=== PATIENT | female | born 1955 | race Caucasian/White ===

== ENCOUNTER 2019-07-31 06:04 | Outpatient (RCR) | payer MEDICARE, MEDICAID, SELFPAY | END 2019-08-26 00:01 | LOC: ONCMED 06:04 | PROVIDERS: Family Provider Family Medicine; Visit Provider Internal Medicine Hematology & Oncology | DX: Z45.2 Encounter for adjustment and management of vascular access device (principal) | CPT/HCPCS: 96523; J1642 ==

== ENCOUNTER 2019-09-01 06:16 | Outpatient (RCR) | payer MEDICARE, MEDICAID, SELFPAY | END 2019-09-26 23:59 | disposition home or self-care (01) | LOC: ONCMED 06:16 | PROVIDERS: Family Provider Family Medicine; Visit Provider Internal Medicine Hematology & Oncology | DX: Z45.2 Encounter for adjustment and management of vascular access device (principal) | CPT/HCPCS: 96523 ==

== ENCOUNTER 2019-10-01 05:40 | Outpatient (RCR) | payer MEDICARE, MEDICAID, SELFPAY ==
[2019-10-01 09:55] LABS: Basophils % 0.5 %; Eosinophils # 0.1 10^3/uL (0.0-0.8); Eosinophils % 1.7 %; Hematocrit 41.3 % (37.0-47.0); Hemoglobin 13.5 g/dL (11.5-15.3); Lymphocytes # 2.7 10^3/uL (0.8-4.8); Lymphocytes % 34.8 %; Mean Corpuscular HGB Conc 32.7 g/dL (30.0-36.0); Mean Corpuscular Hemoglobin 30.8 pg (28.0-34.0); Mean Corpuscular Volume 94.3 fL (81-99); Monocytes # 0.6 10^3/uL (0.2-0.9); Monocytes % 7.3 %; Neutrophils # 4.2 10^3/uL (1.8-7.7); Neutrophils % 55.6 %; Nucleated Red Blood Cells % 0 %; Platelet Count 192 10^3/cmm (130-400); Red Blood Count 4.38 10^6/uL (4.1-5.3); Red Cell Distribution Width 12.9 % (12.1-15.1); White Blood Count 7.6 10^3/uL (4.0-10.0)
[2019-10-01 10:08] LABS: Alanine Aminotransferase 13 U/L (0-33); Albumin Level 3.7 g/dL (3.5-5.2); Alkaline Phosphatase 97 IU/L (35-105); Anion Gap 15.8 (5-19); Aspartate Amino Transferase 14 U/L (0-32); Blood Urea Nitrogen 15 mg/dL (8-23); Calcium 9.6 mg/dL (8.5-10.5); Carbon Dioxide 23 mmol/L (22-29); Chloride 105 mmol/L (98-107); Globulin 3.3 g/dL (1.3-4.6); Glomerular Filtration Rate 37.7 mL/min (90-130); Glucose 84 mg/dL (65-115); Potassium 3.8 mmol/L (3.5-5.1); Sodium 140 mmol/L (136-145); Total Bilirubin 0.2 mg/dL (0.15-1.2)
== END 2019-10-25 23:59 | disposition home or self-care (01) ==
LOC: ONCMED 05:40
PROVIDERS: Family Provider Family Medicine; Visit Provider Internal Medicine Hematology & Oncology
DX: C34.11 Malignant neoplasm of upper lobe, right bronchus or lung (principal); J44.9 Chronic obstructive pulmonary disease, unspecified; F17.210 Nicotine dependence, cigarettes, uncomplicated; Z92.21 Personal history of antineoplastic chemotherapy; Z90.2 Acquired absence of lung [part of]
CPT/HCPCS: 36591; 80053; 85025; G0463

== ENCOUNTER 2019-10-30 06:19 | Outpatient (RCR) | payer MEDICARE, MEDICAID, SELFPAY | END 2019-11-25 23:59 | disposition home or self-care (01) | LOC: ONCMED 06:19 | PROVIDERS: Family Provider Family Medicine; Visit Provider Internal Medicine Hematology & Oncology | DX: Z45.2 Encounter for adjustment and management of vascular access device (principal) | CPT/HCPCS: 96523 ==

== ENCOUNTER 2019-11-28 11:05 | Outpatient (CLI) | payer MEDICARE, MEDICAID, SELFPAY | END 2019-11-28 11:06 | disposition home or self-care (01) | LOC: ONCMED 11:05 | PROVIDERS: Family Provider Family Medicine; Visit Provider Internal Medicine Hematology & Oncology | DX: Z45.2 Encounter for adjustment and management of vascular access device (principal) | CPT/HCPCS: 96523 ==

== ENCOUNTER 2020-01-12 06:45 | Outpatient (RCR) | payer MEDICARE, MEDICAID, SELFPAY ==
--- NOTE | 2019-12-30 10:17 | CT_ITS ---
WS: [id number] CT chest w con* [id number] REASON FOR EXAM: LUNG CANCER IV CONTRAST ADMINISTERED: Visi 95 mL. TOTAL EXAM DLP: 523.[address] scans at [facility] use at least one of these dose optimization techniques: automat ed exposure control; mA and/or kV adjustment per patient size (includes targeted exams where dose is matched to clinical indication); or iterative reconstruction. FINDINGS: Follow-up evaluation from previous carcinoma the lungs show the lung cottrell suggest a right upper lung lobectomy. Pain recurrent lesion is not identified. The left lung is normal. There is mild scarring seen in the midportion of the right lung. The mediastinum was normal no masses in the hilum are seen. The great vessels are normal. The liver shows multiple hypodense lesions most likely cysts. The thoracic spine and upper lumbar spine showed no destructive changes. Both adrenal glands were normal. CT/CT chest w con* [id number] IMPRESSION: No recurrent neoplasm right lung with resection of the right upper lung Multiple cystic changes in the liver similar to previous exam . Resection of the right upper lung. No interval change since previous exam May 05, 2019
[2019-12-30 10:50] LABS: Blood Urea Nitrogen 12 mg/dL (8-23); Glomerular Filtration Rate 45.1 mL/min (90-130)
[2019-12-30] MEDS: iodixanol 320 mg/mL 100mL Btl IV (11:37)
[2020-01-12 08:54] LABS: Basophils % 0.4 %; Eosinophils # 0.1 10^3/uL (0.0-0.8); Eosinophils % 1.7 %; Hematocrit 40.8 % (37.0-47.0); Hemoglobin 13.1 g/dL (11.5-15.3); Lymphocytes # 1.9 10^3/uL (0.8-4.8); Lymphocytes % 25.7 %; Mean Corpuscular HGB Conc 32.1 g/dL (30.0-36.0); Mean Corpuscular Hemoglobin 31.2 pg (28.0-34.0); Mean Corpuscular Volume 97.1 fL (81-99); Mean Platelet Volume 9.4 fL (7.4-10.4); Monocytes # 0.7 10^3/uL (0.2-0.9); Monocytes % 9.5 %; Neutrophils # 4.5 10^3/uL (1.8-7.7); Neutrophils % 62.4 %; Nucleated Red Blood Cells % 0 %; Platelet Count 257 10^3/cmm (130-400); Red Cell Distribution Width 14.3 % (12.1-15.1); White Blood Count 7.2 10^3/uL (4.0-10.0)
[2020-01-12 09:10] LABS: Alanine Aminotransferase 14 U/L (0-33); Alkaline Phosphatase 93 IU/L (35-105); Aspartate Amino Transferase 13 U/L (0-32); Blood Urea Nitrogen 13 mg/dL (8-23); Calcium 9.7 mg/dL (8.5-10.5); Carbon Dioxide 24 mmol/L (22-29); Chloride 107 mmol/L (98-107); Glomerular Filtration Rate 49.8 mL/min (90-130); Glucose 102 mg/dL (65-115); Osmolality Calculated 290 mOsm/kg (285-295); Sodium 142 mmol/L (136-145); Total Bilirubin 0.3 mg/dL (0.15-1.2)
--- NOTE | 2020-01-12 17:52 | ONC FU_ITS ---
Dr. Jaime follow up note Patient: Ann Childers Unit #: [id number]: 1955 Dicatated By: Chad Jaime M.D.Date of Visit:January 12, 2020 Onc Med Follow-up/Prog Note History of Present Illness: Mrs. Childers is a 64-year-old female who, on 09/30/2018, presented to [facility] with progressive dyspnea following flu vaccination. She underwent CTA chest to rule out pulmonary embolism and there was incidental finding of a spiculated mass measuring 4.4 cm involving right upper lobe. There was some extension to the pleural margin. She was referred to Dr. Ferrell and had CT PET scan done on 11/02/2018. The PET/CT reported increase uptake in right upper lobe mass measuring 4 cm. She underwent right upper and middle lobectomy on 12/02/2018. The final pathology report showed 4.5 x 4.4 cm, adenocarcinoma, low-grade tumor 0 out of 3 right hilar lymph node showed metastatic disease, margins were clear but lymphatic invasion was seen. She did have CT of the Head on 01/24/2019 which did not report any metastatic disease. Long-standing history of smoking, still active. CT scan of head was done on 01/24/2019 showed no evidence of metastatic disease. Started on adjuvant chemotherapy with cisplatin/Alimta ???4 on 02/25/2019 Received 3 cycles of chemotherapy with cisplatin/Alimta but with fourth/final cycle carboplatin was substituted for cisplatin with Alimta due to progressive mild renal insufficiency.Completed her adjuvant chemotherapy on 05/27/2019 Follow-up CT scan done on 05/05/2019 showed right upper lobectomy with minimal residual peripheral scarring. No evidence of recurrent tumor or metastatic disease Follow-up CT scan of chest done on 12/30/2019 showed no recurrence of disease status post right upper lobe lobectomy, multiple cystic changes in the liver similar to prior exam. Came for follow-up, denies any specific complaints, no fever or chills, no nausea or vomiting, no diarrhea constipation, no hemoptysis or hematemesis, no headaches, no weight loss, appetite is good. Medications: Acetaminophen 2 Tablet (of 500 mg) Oral b.i.d. PRN, Albuterol Sulfate 1 puff(s) (of 108 (90 base) mcg/act) Aerosol Powder, Breath Activated Inhalation q 4 hours PRN, Breo Ellipta 1 puff(s) (of 100-25 mcg/inh) Aerosol Powder, Breath Activated Inhalation daily Allergies: HYDROcodone-Acetaminophen and Sulfa Antibiotics. Review of Systems: Constitutional - Appetite is fair and weight is stable. No fever, chills, or night sweats. Positive for hot flashes. Energy level is fair, ENMT - No sinus congestion/drainage. No sore throat or difficulty swallowing, Hematologic/Lymphatic - Positive for easy bruising, Respiratory - Positive for shortness of breath and cough. No pleuritic pain or hemoptysis, Cardiovascular - No angina pain. No palpitations, Gastrointestinal - No nausea, no vomiting. No heartburn or acid reflux. No constipation, Positive for occasional diarrhea. No blood in the stool or black stools, Genitourinary (F) - No dysuria or hematuria. No urinary frequency. No urgency or incontinence, Musculoskeletal - Positive for joint pain, Neurologic - No headache, no dizziness. No numbness/paresthesias or other focal neurologic symptoms, Psychiatric - Positive for anxiety and insomnia. Vital Signs: Performed on January 12, 2020 09:27 Height - 64.50 in Weight - 172.2 lbs (LOW) BSA - 1.85 sq.m BMI - 29.10 Temperature - 97.3 F (LOW) Pulse - 86 /min Respiration - 16 /min BP - 128/76 mm(hg) O2 Sat - 99 % Pain - 2 Performance Status: 0 - Fully active, able to carry on all predisease activities without restrictions. (ECOG) Physical Examination: ENMT - no mouth sores, Respiratory - Lungs are clear, Cardiovascular - Regular rate and rhythm of heart, Abdomen - bowel sounds present, nontender, Extremities - no edema or rash. Lab/Imaging: Test performed on December 30, 2019 10:32 BUN 12 mg/dL Test performed on Oct 01, 2019 09:41 Sodium 140 mmol/L Potassium 3.8 mmol/L Chloride 105 mmol/L CO2 23 mmol/L Anion Gap 15.8 Creatinine 1.4 mg/dL Cr Clearance (Est) 51.0100 mL/min eGFR 37.7 mL/min Glucose 84 mg/dL Calcium 9.6 mg/dL Protein, Total 7.0 g/dL Albumin 3.7 g/dL Globulin 3.3 g/dL Bilirubin, Total 0.2 mg/dL ALT (SGPT) 13 U/L AST (SGOT) 14 U/L Alkaline Phosphatase 97 IU/L WBC 7.6 10 3/uL RBC 4.38 10 6/uL HGB 13.5 g/dL HCT 41.3 % MCV 94.3 fL MCH 30.8 pg MCHC 32.7 g/dL RDW 12.9 % Platelet Count 192 10 3/cmm MPV 10.0 fL Neutrophils 4.2 10 3/uL Lymphocytes 2.7 10 3/uL Monocytes 0.6 10 3/uL Eosinophils 0.1 10 3/uL Basophils 0.0 10 3/uL Neutrophil % 55.6 % Lymphocyte % 34.8 % Monocyte % 7.3 % Eosinophil % 1.7 % Basophils % 0.5 % Impression: Adenocarcinoma of right upper lobe status post right upper and middle lobectomy done on 12/02/2018 final pathology report showed low-grade well to moderately differentiated infiltrating adenocarcinoma, tumor size 4.5 x 4.4 centimeter, pleural surface free of tumor, small lymphovascular space invasion seen, no venous invasion seen, margins were clear, T2b 0 out of 3 right hilar lymph node showed metastatic disease. N0 stage IIa with unfavorable features, like tumor more than 4 cm and with lymphovascular space invasion CT scan of head done on 01/24/2019 showed no evidence of metastatic disease .COPD, Chronic smoker, still active Ms. Childers began treatment with cisplatin Alimta on 02/25/2019. Completed her adjuvant chemotherapy on 05/20/2019 e.g. 3 cycles with cisplatin/Alimta and 1 cycle with carboplatin/Alimta cisplatin was changed to carboplatin due to renal insufficiency Plan: Discussed with patient regarding her labs white blood count 7.2 hemoglobin 13.1 crit 40.8 platelets 257,000 CMP within normal limits and CT scan of chest Clinically, patient has no signs symptom suggestive of recurrence of disease, her follow-up CT scan of chest and lab workup showed no evidence of recurrence of disease. Overall, patient is doing well, will continue to monitor and she will return to clinic in 6 month with CBC CMP and CT scan of chest and upper abdomen. Signed By: Chad Jaime M.D. <<Signature on File>>
== END 2020-01-25 23:59 | disposition home or self-care (01) ==
LOC: ONCMED 06:45
PROVIDERS: PCP Family Medicine; Visit Provider Internal Medicine Hematology & Oncology
DX: Z08 Encounter for follow-up examination after completed treatment for malignant neoplasm (principal); Z85.118 Personal history of other malignant neoplasm of bronchus and lung; F17.200 Nicotine dependence, unspecified, uncomplicated; J44.9 Chronic obstructive pulmonary disease, unspecified; Z92.21 Personal history of antineoplastic chemotherapy; Z90.2 Acquired absence of lung [part of]
CPT/HCPCS: 36415; 36591; 71260; 80053; 82565; 84520; 85025; G0463

== ENCOUNTER 2020-01-30 07:14 | Outpatient (RCR) | payer MEDICARE, MEDICAID, SELFPAY | END 2020-02-24 23:59 | disposition home or self-care (01) | LOC: ONCMED 07:14 | PROVIDERS: PCP Family Medicine; Visit Provider Internal Medicine Hematology & Oncology | DX: Z45.2 Encounter for adjustment and management of vascular access device (principal); C34.11 Malignant neoplasm of upper lobe, right bronchus or lung; D70.1 Agranulocytosis secondary to cancer chemotherapy; T45.1X5A Adverse effect of antineoplastic and immunosuppressive drugs, initial encounter | CPT/HCPCS: 96523 ==

== ENCOUNTER 2020-03-01 07:39 | Outpatient (RCR) | payer MEDICARE, MEDICAID, SELFPAY | END 2020-03-26 23:59 | disposition home or self-care (01) | LOC: ONCMED 07:39 | PROVIDERS: PCP Family Medicine; Visit Provider Internal Medicine Hematology & Oncology | DX: Z45.2 Encounter for adjustment and management of vascular access device (principal); C34.11 Malignant neoplasm of upper lobe, right bronchus or lung; D70.1 Agranulocytosis secondary to cancer chemotherapy; T45.1X5A Adverse effect of antineoplastic and immunosuppressive drugs, initial encounter | CPT/HCPCS: 96523 ==

== ENCOUNTER 2020-03-31 06:09 | Outpatient (RCR) | payer MEDICARE, MEDICAID, SELFPAY | END 2020-04-26 23:59 | disposition home or self-care (01) | LOC: ONCMED 06:09 | PROVIDERS: PCP Family Medicine; Visit Provider Internal Medicine Hematology & Oncology | DX: Z45.2 Encounter for adjustment and management of vascular access device (principal) | CPT/HCPCS: 96523 ==

== ENCOUNTER 2020-05-06 06:49 | Outpatient (RCR) | payer MEDICARE, MEDICAID, SELFPAY | END 2020-05-26 23:59 | disposition home or self-care (01) | LOC: ONCMED 06:49 | PROVIDERS: PCP Family Medicine; Visit Provider Internal Medicine Hematology & Oncology | DX: Z45.2 Encounter for adjustment and management of vascular access device (principal) | CPT/HCPCS: 96523 ==

== ENCOUNTER 2020-06-01 06:29 | Outpatient (CLI) | payer MEDICARE, MEDICAID, SELFPAY | END 2020-06-01 06:30 | disposition home or self-care (01) | LOC: ONCMED 06:32 | PROVIDERS: PCP Family Medicine; Visit Provider Internal Medicine Hematology & Oncology | DX: Z45.2 Encounter for adjustment and management of vascular access device (principal) | CPT/HCPCS: 96523 ==

== ENCOUNTER 2020-07-09 10:08 | Outpatient (CLI) | payer MEDICARE, MEDICAID, SELFPAY ==
--- NOTE | 2020-07-09 10:27 | CT_ITS ---
WS: [id number] CT scan of the chest With IV contrast, CT scan of the abdomen with IV contrast and oral contrast. Ad ditional two-dimensional coronal and sagittal reconstruction was performed. 07/09/2020 Clinical Data: LUNG CANCER, MALIGNANT NEOPLASM OF UPPER Lobe, right BRONCHUS Comparison: CT chest, 12/30/2019. DLP: 1711.[address] scans at [facility] use at least one of these dose optimization techniques: automat ed exposure control; mA and/or kV adjustment per patient size (includes targeted exams where dose is matched to clinical indication); or iterative reconstruction. Findings: Chest: The right upper lobectomy is seen. No nodules, masses or effusions are seen. There is a pleural-based scar which is not changed. The heart size is normal with no pericardial effusion. No pneumonia or pneumothorax is seen. The trac hea bifurcates normally into the bronchi. The pulmonary arterial system and thoracic aorta demonstrate no abnormalities or dilatations. There is no axillary or significant mediastinal adenopathy. The bony thorax shows no metastatic lesio ns. Abdomen/pelvis: There are clips in the gallbladder fossa from cholecystectomy. The liver shows no definite metastatic lesions but there are multiple low density lesions probably cysts unchanged. The spleen, adrenal glands and pancreas are normal. The kidneys show equal bilateral contrast excretion with no cyst or masses. No renal masses, hydronep hrosis or renal calculi are seen. The abdominal aorta is normal in size with calcification in the wall.. No appendicitis is seen. Oral contrast is in the stomach and small bowel and there is no bowel dilata tion. No abscess, adenopathy, ascites, mass, obstruction or free air is seen. The lumbar vertebral bodies show no metastatic lesions. CT/CT chest abdomen w con* Impression: 1. Pleural-based scar of the right upper lung, no evidence of recurrence or met astatic disease in the chest. 2. Bilateral emphysematous change. 3. Low-density lesions in the liver most likely cysts. 4. No acute intra-abdominal abnormalities are seen.
[2020-07-09] MEDS: iohexol 300 mg/mL 50 mL Btl PO (10:52)
[2020-07-09 10:59] LABS: Blood Urea Nitrogen 12 mg/dL (8-23)
[2020-07-09 11:00] LABS: Glomerular Filtration Rate 62.6 mL/min (90-130)
[2020-07-09] MEDS: iohexol 300 mg/mL 100 mL Btl IV (11:07)
== END 2020-07-09 10:09 | disposition home or self-care (01) ==
LOC: RADWPI 10:13
PROVIDERS: PCP Family Medicine; Visit Provider Internal Medicine Hematology & Oncology
DX: C34.11 Malignant neoplasm of upper lobe, right bronchus or lung (principal); K76.9 Liver disease, unspecified
CPT/HCPCS: 71260; 74160; 82565; 84520; Q9967

== ENCOUNTER 2020-07-14 05:49 | Outpatient (CLI) | payer MEDICARE, MEDICAID, SELFPAY ==
[2020-07-14 11:54] LABS: Basophils % 0.4 %; Eosinophils # 0.1 10^3/uL (0.0-0.8); Eosinophils % 1.6 %; Hematocrit 43.9 % (37.0-47.0); Hemoglobin 14.3 g/dL (11.5-15.3); Lymphocytes # 1.9 10^3/uL (0.8-4.8); Lymphocytes % 26.5 %; Mean Corpuscular HGB Conc 32.6 g/dL (30.0-36.0); Mean Corpuscular Hemoglobin 31.3 pg (28.0-34.0); Mean Corpuscular Volume 96.1 fL (81-99); Mean Platelet Volume 9.5 fL (7.4-10.4); Monocytes # 0.5 10^3/uL (0.2-0.9); Monocytes % 7.4 %; Neutrophils # 4.66 10^3/uL (1.8-7.7); Neutrophils % 63.8 %; Nucleated Red Blood Cells % 0 %; Platelet Count 233 10^3/cmm (130-400); Red Blood Count 4.57 10^6/uL (4.1-5.3); Red Cell Distribution Width 13.6 % (12.1-15.1); White Blood Count 7.3 10^3/uL (4.0-10.0)
[2020-07-14 12:13] LABS: Alanine Aminotransferase 14 U/L (0-33); Albumin Level 3.9 g/dL (3.5-5.2); Alkaline Phosphatase 80 IU/L (35-105); Blood Urea Nitrogen 15 mg/dL (8-23); Calcium 9.1 mg/dL (8.5-10.5); Carbon Dioxide 24 mmol/L (22-29); Chloride 104 mmol/L (98-107); Globulin 2.5 g/dL (1.3-4.6); Glomerular Filtration Rate 49.7 mL/min (90-130); Glucose 97 mg/dL (65-115); Osmolality Calculated 285 mOsm/kg (285-295); Sodium 137 mmol/L (136-145); Total Bilirubin 0.4 mg/dL (0.15-1.2); Total Protein 6.4 g/dL (6.6-8.7)
[2020-07-14 12:14] LABS: Anion Gap 13.3 (5-19); Aspartate Amino Transferase 13 U/L (0-32); Potassium 4.3 mmol/L (3.5-5.1)
--- NOTE | 2020-07-14 13:42 | ONC FU_ITS ---
Dr. Jaime follow up note Patient: Ann Childers Unit #: [id number]: 1955 Dicatated By: Chad Jaime M.D.Date of Visit:Jul 14, 2020 Onc Med Follow-up/Prog Note History of Present Illness: Mrs. Childers is a 65-year-old female who, on 09/30/2018, presented to [facility] ER with progressive dyspnea following flu vaccination. She underwent CTA chest to rule out pulmonary embolism and there was incidental finding of a spiculated mass measuring 4.4 cm involving right upper lobe. There was some extension to the pleural margin. She was referred to Dr. Ferrell and had CT PET scan done on 11/02/2018. The PET/CT reported increase uptake in right upper lobe mass measuring 4 cm. She underwent right upper and middle lobectomy on 12/02/2018. The final pathology report showed 4.5 x 4.4 cm, adenocarcinoma, low-grade tumor 0 out of 3 right hilar lymph node showed metastatic disease, margins were clear but lymphatic invasion was seen. She did have CT of the Head on 01/24/2019 which did not report any metastatic disease. Long-standing history of smoking, still active. CT scan of head was done on 01/24/2019 showed no evidence of metastatic disease. Started on adjuvant chemotherapy with cisplatin/Alimta ???4 on 02/25/2019 Received 3 cycles of chemotherapy with cisplatin/Alimta but with fourth/final cycle carboplatin was substituted for cisplatin with Alimta due to progressive mild renal insufficiency.Completed her adjuvant chemotherapy on 05/27/2019 Follow-up CT scan done on 05/05/2019 showed right upper lobectomy with minimal residual peripheral scarring. No evidence of recurrent tumor or metastatic disease Follow-up CT scan of chest done on 12/30/2019 showed no recurrence of disease status post right upper lobe lobectomy, multiple cystic changes in the liver similar to prior exam. Follow-up CT scan of chest done on July 09, 2020 showed pleural-based scar of the right upper lung, no evidence of recurrence or metastatic disease in the chest. Bilateral emphysematous changes. Low-density lesions in the liver most likely cysts and stable Came for follow-up, denies any specific complaints, no fever chills, no nausea or vomiting, no diarrhea constipation, no hemoptysis or hematemesis, No headaches, no blurring or double vision, appetite is good . Medications: Acetaminophen 2 Tablet (of 500 mg) Oral b.i.d. PRN, Albuterol Sulfate 1 puff(s) (of 108 (90 base) mcg/act) Aerosol Powder, Breath Activated Inhalation q 4 hours PRN, Breo Ellipta 1 puff(s) (of 100-25 mcg/inh) Aerosol Powder, Breath Activated Inhalation daily Allergies: HYDROcodone-Acetaminophen and Sulfa Antibiotics. Review of Systems: Review of Systems is not available for this patient. Vital Signs: Performed on Jul 14, 2020 13:10 Height - 64.50 in Weight - 169.8 lbs (LOW) BSA - 1.83 sq.m BMI - 28.70 Temperature - 97.8 F (LOW) Pulse - 90 /min Respiration - 18 /min BP - 135/83 mm(hg) O2 Sat - 98 % Pain - 0 Performance Status: 0 - Fully active, able to carry on all predisease activities without restrictions. (ECOG) Physical Examination: ENMT - Sinuses are nontender. No oral exudates, ulcers, masses, thrush or mucositis. Oropharynx clear. Tongue normal, Respiratory - Lungs are clear to auscultation, Cardiovascular - Regular rate and rhythm of heart, Abdomen - Soft, bowel sounds present, Extremities - No visible edema. Lab/Imaging: Most recent lab results are not available for this patient. Impression: Adenocarcinoma of right upper lobe status post right upper and middle lobectomy done on 12/02/2018 final pathology report showed low-grade well to moderately differentiated infiltrating adenocarcinoma, tumor size 4.5 x 4.4 centimeter, pleural surface free of tumor, small lymphovascular space invasion seen, no venous invasion seen, margins were clear, T2b 0 out of 3 right hilar lymph node showed metastatic disease. N0 stage IIa with unfavorable features, like tumor more than 4 cm and with lymphovascular space invasion CT scan of head done on 01/24/2019 showed no evidence of metastatic disease .COPD, Chronic smoker, still active Ms. Childers began treatment with cisplatin Alimta on 02/25/2019. Completed her adjuvant chemotherapy on 05/20/2019 e.g. 3 cycles with cisplatin/Alimta and 1 cycle with carboplatin/Alimta cisplatin was changed to carboplatin due to renal insufficiency Plan: Discussed with patient regarding her labs white blood count 7.3 hemoglobin 14.3 hematocrit 43.9 platelets 233,000 CMP within normal limits CT scan of chest done on July 09, 2020 showed no evidence of recurrence of disease Clinically, patient is doing well with no new signs symptom suggestive of recurrence of disease her follow-up CT scan shows no evidence of disease and lab work-up is also within normal range. She return to clinic in 6 months with CBC CMP Signed By: Chad Jaime M.D. <<Signature on File>>
== END 2020-07-14 05:50 | disposition home or self-care (01) ==
LOC: ONCMED 05:50
PROVIDERS: PCP Family Medicine; Visit Provider Internal Medicine Hematology & Oncology
DX: Z08 Encounter for follow-up examination after completed treatment for malignant neoplasm (principal); Z85.118 Personal history of other malignant neoplasm of bronchus and lung; J44.9 Chronic obstructive pulmonary disease, unspecified; F17.200 Nicotine dependence, unspecified, uncomplicated; Z90.2 Acquired absence of lung [part of]; Z92.21 Personal history of antineoplastic chemotherapy
CPT/HCPCS: 36591; 80053; 85025; G0463

== ENCOUNTER 2020-09-02 09:21 | Outpatient (CLI) | payer MEDICARE, MEDICAID, SELFPAY | END 2020-09-02 09:22 | disposition home or self-care (01) | LOC: ONCMED 09:24 | PROVIDERS: PCP Family Medicine; Visit Provider Internal Medicine Hematology & Oncology | DX: Z45.2 Encounter for adjustment and management of vascular access device (principal) | CPT/HCPCS: 96523 ==

== ENCOUNTER 2020-11-02 09:31 | Outpatient (CLI) | payer MEDICARE, MEDICAID, SELFPAY | END 2020-11-02 09:32 | disposition home or self-care (01) | LOC: ONCMED 09:35 | PROVIDERS: PCP Family Medicine; Visit Provider Internal Medicine Hematology & Oncology | DX: Z45.2 Encounter for adjustment and management of vascular access device (principal) | CPT/HCPCS: 96523 ==

== ENCOUNTER 2020-12-02 09:21 | Outpatient (CLI) | payer MEDICARE, MEDICAID, SELFPAY | END 2020-12-02 09:22 | disposition home or self-care (01) | PROVIDERS: PCP Family Medicine; Visit Provider Internal Medicine Hematology & Oncology | DX: Z45.2 Encounter for adjustment and management of vascular access device (principal) | CPT/HCPCS: 96523 ==

== ENCOUNTER 2020-12-28 09:03 | Outpatient (CLI) | payer MEDICARE, MEDICAID, SELFPAY ==
[2020-12-28 09:48] LABS: Basophils # 0.1 10^3/uL (0.0-0.1); Basophils % 0.7 %; Eosinophils # 0.2 10^3/uL (0.0-0.8); Eosinophils % 2.1 %; Hematocrit 44.1 % (37.0-47.0); Hemoglobin 14.3 g/dL (11.5-15.3); Lymphocytes # 2.3 10^3/uL (0.8-4.8); Lymphocytes % 31.1 %; Mean Corpuscular HGB Conc 32.4 g/dL (30.0-36.0); Mean Corpuscular Hemoglobin 31.2 pg (28.0-34.0); Mean Corpuscular Volume 96.1 fL (81-99); Mean Platelet Volume 9.7 fL (7.4-10.4); Monocytes # 0.6 10^3/uL (0.2-0.9); Monocytes % 8.5 %; Neutrophils # 4.17 10^3/uL (1.8-7.7); Neutrophils % 57.3 %; Nucleated Red Blood Cells % 0 %; Platelet Count 233 10^3/cmm (130-400); Red Blood Count 4.59 10^6/uL (4.1-5.3); Red Cell Distribution Width 14.2 % (12.1-15.1); White Blood Count 7.3 10^3/uL (4.0-10.0)
[2020-12-28 10:09] LABS: Alanine Aminotransferase 10 U/L (0-33); Albumin Level 3.7 g/dL (3.5-5.2); Alkaline Phosphatase 76 IU/L (35-105); Aspartate Amino Transferase 10 U/L (0-32); Blood Urea Nitrogen 12 mg/dL (8-23); Calcium 8.5 mg/dL (8.5-10.5); Carbon Dioxide 26 mmol/L (22-29); Chloride 103 mmol/L (98-107); Globulin 2.4 g/dL (1.3-4.6); Glomerular Filtration Rate 55.5 mL/min (90-130); Glucose 74 mg/dL (65-115); Osmolality Calculated 280 mOsm/kg (285-295); Sodium 136 mmol/L (136-145); Total Bilirubin 0.4 mg/dL (0.15-1.2); Total Protein 6.1 g/dL (6.6-8.7)
[2020-12-28 10:13] LABS: Anion Gap 11.5 (5-19); Potassium 4.5 mmol/L (3.5-5.1)
--- NOTE | 2020-12-28 11:12 | ONC FU_ITS ---
Dr. Jaime follow up note Patient: Ann Childers Unit #: [id number]: 1955 Dicatated By: Chad Jaime M.D.Date of Visit:December 28, 2020 Onc Med Follow-up/Prog Note History of Present Illness: Mrs. Childers is a 65-year-old female who, on 09/30/2018, presented to [facility] with progressive dyspnea following flu vaccination. She underwent CTA chest to rule out pulmonary embolism and there was incidental finding of a spiculated mass measuring 4.4 cm involving right upper lobe. There was some extension to the pleural margin. She was referred to Dr. Ferrell and had CT PET scan done on 11/02/2018. The PET/CT reported increase uptake in right upper lobe mass measuring 4 cm. She underwent right upper and middle lobectomy on 12/02/2018. The final pathology report showed 4.5 x 4.4 cm, adenocarcinoma, low-grade tumor 0 out of 3 right hilar lymph node showed metastatic disease, margins were clear but lymphatic invasion was seen. She did have CT of the Head on 01/24/2019 which did not report any metastatic disease. Long-standing history of smoking, still active. CT scan of head was done on 01/24/2019 showed no evidence of metastatic disease. Started on adjuvant chemotherapy with cisplatin/Alimta ???4 on 02/25/2019 Received 3 cycles of chemotherapy with cisplatin/Alimta but with fourth/final cycle carboplatin was substituted for cisplatin with Alimta due to progressive mild renal insufficiency.Completed her adjuvant chemotherapy on 05/27/2019 Follow-up CT scan done on 05/05/2019 showed right upper lobectomy with minimal residual peripheral scarring. No evidence of recurrent tumor or metastatic disease Follow-up CT scan of chest done on 12/30/2019 showed no recurrence of disease status post right upper lobe lobectomy, multiple cystic changes in the liver similar to prior exam. Follow-up CT scan of chest done on July 09, 2020 showed pleural-based scar of the right upper lung, no evidence of recurrence or metastatic disease in the chest. Bilateral emphysematous changes. Low-density lesions in the liver most likely cysts and stable Came for follow-up, denies any specific complaints, no fever chills, no nausea or vomiting, no diarrhea or constipation, no hemoptysis hematemesis, no headaches blurred vision double vision, no new bony pains, appetite is good, breathing is better with new inhalers, still smoke about a pack a day . Medications: Acetaminophen 2 Tablet (of 500 mg) Oral b.i.d. PRN, Albuterol Sulfate 1 puff(s) (of 108 (90 base) mcg/act) Aerosol Powder, Breath Activated Inhalation q 4 hours PRN, Breo Ellipta 1 puff(s) (of 100-25 mcg/inh) Aerosol Powder, Breath Activated Inhalation daily Allergies: HYDROcodone-Acetaminophen and Sulfa Antibiotics. Review of Systems: Review of Systems is not available for this patient. Vital Signs: Vitals are not available for this patient. Performance Status: 0 - Fully active, able to carry on all predisease activities without restrictions. (ECOG) Physical Examination: ENMT - , No thrush, no jaundice, no mouth sores, Respiratory - Poor air entry otherwise clear, Cardiovascular - Regular rate and rhythm of heart , Abdomen - Soft, bowel sounds present, Extremities - No visible edema. Lab/Imaging: Test performed on Jul 14, 2020 11:42 Sodium 137 mmol/L Potassium 4.3 mmol/L Chloride 104 mmol/L CO2 24 mmol/L Anion Gap 13.3 BUN 15 mg/dL Creatinine 1.1 mg/dL Cr Clearance (Est) 64.0500 mL/min eGFR 49.7 mL/min Glucose 97 mg/dL Osmolality - Calculated 285 mOsm/kg Calcium 9.1 mg/dL Protein, Total 6.4 g/dL Albumin 3.9 g/dL Globulin 2.5 g/dL Bilirubin, Total 0.4 mg/dL ALT (SGPT) 14 U/L AST (SGOT) 13 U/L Alkaline Phosphatase 80 IU/L WBC 7.3 10 3/uL RBC 4.57 10 6/uL HGB 14.3 g/dL HCT 43.9 % MCV 96.1 fL MCH 31.3 pg MCHC 32.6 g/dL RDW 13.6 % Platelet Count 233 10 3/cmm MPV 9.5 fL Neutrophils 4.66 10 3/uL Lymphocytes 1.9 10 3/uL Monocytes 0.5 10 3/uL Eosinophils 0.1 10 3/uL Basophils 0.0 10 3/uL Neutrophil % 63.8 % Lymphocyte % 26.5 % Monocyte % 7.4 % Eosinophil % 1.6 % Basophils % 0.4 % NRBC % 0 % Impression: Adenocarcinoma of right upper lobe status post right upper and middle lobectomy done on 12/02/2018 final pathology report showed low-grade well to moderately differentiated infiltrating adenocarcinoma, tumor size 4.5 x 4.4 centimeter, pleural surface free of tumor, small lymphovascular space invasion seen, no venous invasion seen, margins were clear, T2b 0 out of 3 right hilar lymph node showed metastatic disease. N0 stage IIa with unfavorable features, like tumor more than 4 cm and with lymphovascular space invasion CT scan of head done on 01/24/2019 showed no evidence of metastatic disease .COPD, Chronic smoker, still active Ms. Childers began treatment with cisplatin Alimta on 02/25/2019. Completed her adjuvant chemotherapy on 05/20/2019 e.g. 3 cycles with cisplatin/Alimta and 1 cycle with carboplatin/Alimta cisplatin was changed to carboplatin due to renal insufficiency Plan: Discussed with patient regarding her labs white blood count 7.3 hemoglobin 14.3 hematocrit 44.1 platelets 233,000 CMP within normal limits Clinically, patient doing well with no signs symptoms history of recurrence of disease her lab work-up is within normal range. Patient was advised to quit smoking and was offered any assistance she may need She return to clinic in 3 months with CBC CMP and follow-up CT scan of chest Signed By: Chad Jaime M.D. <<Signature on File>>
== END 2020-12-28 09:04 | disposition home or self-care (01) ==
LOC: ONCMED 09:05
PROVIDERS: PCP Family Medicine; Visit Provider Internal Medicine Hematology & Oncology
DX: C34.11 Malignant neoplasm of upper lobe, right bronchus or lung (principal); J44.9 Chronic obstructive pulmonary disease, unspecified; F17.210 Nicotine dependence, cigarettes, uncomplicated; Z79.899 Other long term (current) drug therapy; Z92.21 Personal history of antineoplastic chemotherapy
CPT/HCPCS: 36591; 80053; 85025; 99215

== ENCOUNTER 2021-03-01 11:01 | Outpatient (CLI) | payer MEDICARE, MEDICAID, SELFPAY | END 2021-03-01 11:02 | disposition home or self-care (01) | PROVIDERS: PCP Family Medicine; Visit Provider Internal Medicine Hematology & Oncology | DX: Z45.2 Encounter for adjustment and management of vascular access device (principal) | CPT/HCPCS: 96523 ==

== ENCOUNTER 2021-03-28 08:15 | Outpatient (CLI) | payer MEDICARE, MEDICAID, SELFPAY ==
--- NOTE | 2021-03-28 08:30 | CT_ITS ---
WS: [id number] CT scan of the chest with IV contrast, additional two-dimensional coronal and sagittal reconstruction was performed. 03/28/2021 Clinical Data: LUNG CANCER Comparison: CT chest abdomen and pelvis, 07/09/2020. DLP: 772.[address] scans at [facility] use at least one of these dose optimization techniques: automat ed exposure control; mA and/or kV adjustment per patient size (includes targeted exams where dose is matched to clinical indication); or iterative reconstruction. Findings: The right upper lobectomy is noted. There is peripheral scarring in the right lung unchanged. No nodules, masses or effusions are seen. The heart size is normal with no pericardial effusion. No p neumonia or pneumothorax is present. The pulmonary arterial system and thoracic aorta demonstrate no abnormalities or dilatations. The trachea bifurcates normally into the bronchi. There is no axillary or significant mediastinal adenopathy. The upper abdomen demonstrates no change from before. There are multiple low density lesions in the l iver which are probably cysts. No metastatic nodules are noted. There are clips in the right upper qu adrant from a cholecystectomy. The bones of the thorax are unremarkable with no evidence of bony meta static lesions. CT/CT chest w con* [id number] Impression: 1. Right upper lobectomy and peripheral right upper lobe scar unchanged. 2. No evidence of recurrent lung cancer. 2. Multiple liver cysts unchanged.
[2021-03-28 09:12] LABS: Blood Urea Nitrogen 16 mg/dL (8-23); Glomerular Filtration Rate 55.3 mL/min (90-130)
[2021-03-28] MEDS: iodixanol 320 mg/mL 100mL Btl IV (09:42)
== END 2021-03-28 08:16 | disposition home or self-care (01) ==
PROVIDERS: PCP Family Medicine; Visit Provider Internal Medicine Hematology & Oncology
DX: C34.11 Malignant neoplasm of upper lobe, right bronchus or lung (principal); D70.1 Agranulocytosis secondary to cancer chemotherapy; T45.1X5A Adverse effect of antineoplastic and immunosuppressive drugs, initial encounter; K76.89 Other specified diseases of liver; Z79.899 Other long term (current) drug therapy
CPT/HCPCS: 36415; 71260; 82565; 84520; 96523; Q9967

== ENCOUNTER 2021-04-05 06:03 | Outpatient (CLI) | payer MEDICARE, MEDICAID, SELFPAY ==
[2021-04-05 11:26] LABS: Basophils % 0.5 %; Eosinophils # 0.1 10^3/uL (0.0-0.8); Eosinophils % 1.3 %; Hematocrit 43.1 % (37.0-47.0); Hemoglobin 13.8 g/dL (11.5-15.3); Lymphocytes # 2.2 10^3/uL (0.8-4.8); Lymphocytes % 27.6 %; Mean Corpuscular Hemoglobin 31.9 pg (28.0-34.0); Mean Corpuscular Volume 99.5 fL (81-99); Mean Platelet Volume 9.4 fL (7.4-10.4); Monocytes # 0.8 10^3/uL (0.2-0.9); Monocytes % 10.4 %; Neutrophils # 4.66 10^3/uL (1.8-7.7); Neutrophils % 59.6 %; Nucleated Red Blood Cells % 0 %; Platelet Count 272 10^3/cmm (130-400); Red Blood Count 4.33 10^6/uL (4.1-5.3); Red Cell Distribution Width 15.7 % (12.1-15.1); White Blood Count 7.8 10^3/uL (4.0-10.0)
[2021-04-05 11:59] LABS: Alanine Aminotransferase 13 U/L (0-33); Albumin Level 3.7 g/dL (3.5-5.2); Alkaline Phosphatase 70 IU/L (35-105); Anion Gap 12.5 (5-19); Aspartate Amino Transferase 13 U/L (0-32); Blood Urea Nitrogen 18 mg/dL (8-23); Calcium 8.8 mg/dL (8.5-10.5); Carbon Dioxide 26 mmol/L (22-29); Chloride 104 mmol/L (98-107); Globulin 2.4 g/dL (1.3-4.6); Glomerular Filtration Rate 55.3 mL/min (90-130); Glucose 93 mg/dL (65-115); Osmolality Calculated 288 mOsm/kg (285-295); Potassium 4.5 mmol/L (3.5-5.1); Sodium 138 mmol/L (136-145); Total Bilirubin 0.2 mg/dL (0.15-1.2); Total Protein 6.1 g/dL (6.6-8.7)
--- NOTE | 2021-04-05 17:22 | ONC FU_ITS ---
Dr. Jaime follow up note Patient: Ann Childers Unit #: [id number]: 1955 Dicatated By: Chad Jaime M.D.Date of Visit:Apr 05, 2021 Onc Med Follow-up/Prog Note History of Present Illness: Mrs. Childers is a 66-year-old female who, on 09/30/2018, presented to [facility] [place] [facility] with progressive dyspnea following flu vaccination. She underwent CTA chest to rule out pulmonary embolism and there was incidental finding of a spiculated mass measuring 4.4 cm involving right upper lobe. There was some extension to the pleural margin. She was referred to Dr. Ferrell and had CT PET scan done on 11/02/2018. The PET/CT reported increase uptake in right upper lobe mass measuring 4 cm. She underwent right upper and middle lobectomy on 12/02/2018. The final pathology report showed 4.5 x 4.4 cm, adenocarcinoma, low-grade tumor 0 out of 3 right hilar lymph node showed metastatic disease, margins were clear but lymphatic invasion was seen. She did have CT of the Head on 01/24/2019 which did not report any metastatic disease. Long-standing history of smoking, still active. CT scan of head was done on 01/24/2019 showed no evidence of metastatic disease. Started on adjuvant chemotherapy with cisplatin/Alimta ???4 on 02/25/2019 Received 3 cycles of chemotherapy with cisplatin/Alimta but with fourth/final cycle carboplatin was substituted for cisplatin with Alimta due to progressive mild renal insufficiency.Completed her adjuvant chemotherapy on 05/27/2019 Follow-up CT scan done on 05/05/2019 showed right upper lobectomy with minimal residual peripheral scarring. No evidence of recurrent tumor or metastatic disease Follow-up CT scan of chest done on 12/30/2019 showed no recurrence of disease status post right upper lobe lobectomy, multiple cystic changes in the liver similar to prior exam. Follow-up CT scan of chest done on July 09, 2020 showed pleural-based scar of the right upper lung, no evidence of recurrence or metastatic disease in the chest. Bilateral emphysematous changes. Low-density lesions in the liver most likely cysts and stable Follow-up CT scan of chest done on March 28, 2021 showed no evidence of recurrence of disease. Right upper lobectomy and peripheral right upper lobe scar unchanged. Multiple liver cysts unchanged Came for follow-up, denies any specific complaints, no fever chills, no nausea or vomiting, no diarrhea constipation, no hemoptysis or hematemesis, no new bony pains, no headaches blurred vision double vision, appetite is good, weight is stable, patient still smoking about a pack a day . Medications: Acetaminophen 2 Tablet (of 500 mg) Oral b.i.d. PRN, Albuterol Sulfate 1 Puff(s) (of 108 (90 base) mcg/act) Aerosol Powder, Breath Activated Inhalation q 4 hours PRN, Breo Ellipta 1 puff(s) (of 100-25 mcg/inh) Aerosol Powder, Breath Activated Inhalation daily, Budesonide (0.25 mg/2mL) Suspension Inhalation b.i.d. Allergies: HYDROcodone-Acetaminophen and Sulfa Antibiotics. Review of Systems: Review of Systems is not available for this patient. Vital Signs: Performed on Apr 05, 2021 14:00 Height - 64.50 in Weight - 177 lbs (HIGH) BSA - 1.87 sq.m BMI - 29.91 Temperature - 97.2 F (LOW) Pulse - 91 /min Respiration - 18 /min BP - 116/77 mm(hg) O2 Sat - 94 % (LOW) Pain - 1 Fatigue - 3 Performance Status: 0 - Fully active, able to carry on all predisease activities without restrictions. (ECOG) Physical Examination: ENMT - No mouth sores, no thrush, no edema, Respiratory - Poor air entry otherwise clear, Cardiovascular - Regular rate and rhythm of heart, Abdomen - Soft, bowel sounds present, Extremities - No visible edema. Lab/Imaging: Most recent lab results are not available for this patient. Impression: Adenocarcinoma of right upper lobe status post right upper and middle lobectomy done on 12/02/2018 final pathology report showed low-grade well to moderately differentiated infiltrating adenocarcinoma, tumor size 4.5 x 4.4 centimeter, pleural surface free of tumor, small lymphovascular space invasion seen, no venous invasion seen, margins were clear, T2b 0 out of 3 right hilar lymph node showed metastatic disease. N0 stage IIa with unfavorable features, like tumor more than 4 cm and with lymphovascular space invasion CT scan of head done on 01/24/2019 showed no evidence of metastatic disease .COPD, Chronic smoker, still active Ms. Childers began treatment with cisplatin Alimta on 02/25/2019. Completed her adjuvant chemotherapy on 05/20/2019 e.g. 3 cycles with cisplatin/Alimta and 1 cycle with carboplatin/Alimta cisplatin was changed to carboplatin due to renal insufficiency follow-up CT scan of the chest abdomen pelvis done on March 28, 2021 showed no evidence of recurrence of disease, right upper lobe lobectomy and peripheral right upper lobe scar unchanged. Multiple liver cysts unchanged. Plan: Discussed with patient regarding her labs white blood count 7.8 hemoglobin 13.8 hematocrit 43.1 platelets 272,000 CMP within normal limits and a follow-up CT scan of the chest abdomen pelvis done on March 28, 2021 showed no evidence of recurrence of disease, right upper lobe lobectomy and peripheral right upper lobe scar unchanged. Multiple liver cysts unchanged. Clinically, patient doing well with no new signs symptom suggestive of recurrence of disease, follow-up CT scan of chest abdomen pelvis shows no evidence of recurrent disease and lab work-up is within normal range, patient still smoking about pack a day, patient was advised to quit smoking and was offered any assistance she may need. She will return to clinic in 6 months with CBC CMP and follow-up CT scan of chest in the meantime she will continue with port maintenance on monthly basis Signed By: Chad Jaime M.D. <<Signature on File>>
== END 2021-04-05 06:04 | disposition home or self-care (01) ==
PROVIDERS: PCP Family Medicine; Visit Provider Internal Medicine Hematology & Oncology
DX: Z08 Encounter for follow-up examination after completed treatment for malignant neoplasm (principal); Z85.118 Personal history of other malignant neoplasm of bronchus and lung; J44.9 Chronic obstructive pulmonary disease, unspecified; F17.210 Nicotine dependence, cigarettes, uncomplicated; Z92.21 Personal history of antineoplastic chemotherapy; Z79.899 Other long term (current) drug therapy
CPT/HCPCS: 36591; 80053; 85025; 99214

== ENCOUNTER → 2022-03-29 08:06 | Outpatient (BNVA) | payer MEDICARE, MEDICAID, SELFPAY | PROVIDERS: PCP Family Medicine; Visit Provider Surgery | DX: K43.2 Incisional hernia without obstruction or gangrene (principal) | CPT/HCPCS: 99203 ==

== ENCOUNTER → 2022-05-03 09:59 | Outpatient (BNVA) | payer MEDICARE, MEDICAID, SELFPAY | PROVIDERS: PCP Family Medicine; Visit Provider Surgery | DX: K43.2 Incisional hernia without obstruction or gangrene (principal) | CPT/HCPCS: 99213 ==

== ENCOUNTER 2022-05-17 14:59 | Outpatient (CLI) | payer MEDICARE, MEDICAID, SELFPAY ==
[2022-05-17] MEDS: barium sulfate 450 mL Oral Susp PO (16:30)
--- NOTE | 2022-05-17 16:30 | CT_ITS ---
WS: [id number] CT ABDOMEN PELVIS TECHNIQUE: Contrast-enhanced CT of the abdomen and pelvis with coronal and sagittal reformatted image s. CLINICAL INFORMATION: Hernia COMPARISON: CT July 09, 2020 DLP: 1139.[address] scans at [facility] use at least one of these dose optimization techniques: automated e xposure control; mA and/or kV adjustment per patient size (includes targeted exams where dose is matc hed to clinical indication); or iterative reconstruction. FINDINGS: Ectatic ventral abdominal wall with diastases of the rectus abdominis. This is progressed since 2019.Widening of the rectus abdominis measuring 10.3 CM. Anterior protrusion measuring 3.2 cm. Diffuse fatty infiltration liver. Incidental hepatic cysts or hemangiomas are unchanged. Normal GE ju nction. Normal spleen. Lung bases are well aerated. Adrenal glands are normal. Normal renal parenchym al enhancement. No hydronephrosis. Normal pancreatic parenchymal enhancement. Normal portal vein and splenic vein. Normal caliber abdominal aorta. Celiac and SMA are patent. Retroaortic LEFT renal vein. Retroverted uterus. Normal sigmoid colon. No evidence of high-grade small or large bowel obstruction. CT/CT abdomen pelvis w con* [id number] IMPRESSION: 1. Laxity of the ventral abdominal wall with diastases recti. Widening of the rectus abdominis measuring 10.3 CM. Anterior protrusion measuring 3.2 cm. This is progressed since 2019 2. No evidence of small or large bowel obstruction. 3. No other significant changes compared to previous. 4. Stable hepatic cysts or hemangiomas. 5. No other remarkable findings.
[2022-05-17 16:39] LABS: Blood Urea Nitrogen 2 mg/dL (8-23); Glomerular Filtration Rate 353.2 mL/min (90-130)
[2022-05-17] MEDS: iohexol 350 mg/mL 100 mL Btl IV (16:51)
== END 2022-05-17 15:00 | disposition home or self-care (01) ==
LOC: RAD 15:01
PROVIDERS: PCP Family Medicine; Visit Provider Surgery
DX: K43.9 Ventral hernia without obstruction or gangrene (principal)
CPT/HCPCS: 74177; 82565; 84520

== ENCOUNTER → 2022-05-24 14:52 | Outpatient (BNVA) | payer MEDICARE, MEDICAID, SELFPAY | PROVIDERS: PCP Family Medicine; Visit Provider Surgery | DX: Z09 Encounter for follow-up examination after completed treatment for conditions other than malignant neoplasm (principal); M62.08 Separation of muscle (nontraumatic), other site | CPT/HCPCS: 99213 ==